=== PATIENT | female | born 1985 | race Caucasian/White ===

== ENCOUNTER 2025-05-26 15:00 | Emergency (ER) | payer BC, MEDICAID ==
[2025-05-26 15:42] LABS: APPEARANCE,URINE SLT CLOUDY; GLUCOSE,URINE NEGATIVE (NEGATIVE); OCCULT BLOOD,URINE MODERATE (NEGATIVE)
[2025-05-26 15:50] LABS: BASOPHILS ABSOLUTE AUTO 0.03 K/uL (0.00-0.20); BASOPHILS PERCENT AUTO 0.4 % (0.0-1.0); EOSINOPHILS ABSOLUTE AUTO 0.06 K/uL (0.00-0.45); EOSINOPHILS PERCENT AUTO 0.9 % (0.0-6.0); IMMATURE GRAN ABSOLUTE AUTO 0.01 K/uL (0.00-0.05); IMMATURE GRAN PERCENT AUTO 0.1 % (0.0-0.4); LYMPHOCYTES ABSOLUTE AUTO 1.92 K/uL (1.00-4.80); LYMPHOCYTES PERCENT AUTO 27.5 % (24.0-44.0); MEAN PLATELET VOLUME 9.7 fL (9.4-12.3); MONOCYTES ABSOLUTE AUTO 0.75 K/uL (0.00-0.80); MONOCYTES PERCENT AUTO 10.7 % (0.0-8.0); NEUTROPHILS ABSOLUTE AUTO 4.21 K/uL (1.80-7.70); NEUTROPHILS PERCENT AUTO 60.4 % (41.0-71.0); NRBC ABSOLUTE 0.00 K/uL (0.00-0.02); NRBC PERCENT 0.0 /100WBC (0.0-0.2); PLATELET COUNT,PLT 249 K/uL (150-400); RED BLOOD CELL COUNT 4.39 M/uL (4.10-5.30); WHITE BLOOD CELL COUNT,WBC 6.98 K/uL (3.9-11.3)
[2025-05-26 16:03] LABS: SQUAMOUS EPITHELIAL CELLS,UR RARE
[2025-05-26 16:20] LABS: A/G RATIO 0.9 (0.9-1.6); ALANINE AMINOTRANSFERASE,ALT 19.0 IU/L (14-63); ASPARTATE AMNIOTRANSFERASE,AST 15.0 IU/L (15-37); BILIRUBIN TOTAL 0.2 mg/dL (0.2-1.0); BLOOD UREA NITROGEN,BUN 12.0 mg/dL (7.0-18.0); CARBON DIOXIDE,CO2 23.9 mmol/L (21.0-32.0); CHLORIDE,CL 103.0 mmol/L (98-107); CREATININE 0.9 mg/dL (0.6-1.0); EST CRCL DRUG DOSING (CG) 73.19 mL/min; ESTIMATED GFR 84.0 mL/min (>60); GLUCOSE RANDOM 103.0 mg/dL (74-106); POTASSIUM,K 3.6 mmol/L (3.5-5.1); PROTEIN TOTAL,TP 8.0 g/dL (6.4-8.2); SODIUM,NA 139.0 mmol/L (136-145)
== END 2025-05-26 17:12 | disposition home or self-care (01) ==
LOC: MW.ED 15:00
DX: K92.1 Melena (principal); Z88.5 Allergy status to narcotic agent; Z91.041 Radiographic dye allergy status; Z75.3 Unavailability and inaccessibility of health-care facilities
CPT/HCPCS: 36415; 74176; 74176-26; 80053; 81001; 83690; 83735; 85025; 99283; 99285